=== PATIENT | female | born 1990 | race Caucasian/White ===

== ENCOUNTER → 2018-06-28 | Outpatient (CLI) | payer OTHER ==
--- NOTE | 2018-06-28 09:14 | KCIC ---
MRI Lumbar Spine without contrast History: Lumbago, right sciatica, right leg numbness and pain since December worse the last few months Technique: Multiplanar, multi sequential noncontrast MR imaging was performed of the lumbar spine. Comparison: None Findings: Lumbar vertebral body stature and AP alignment are preserved. Conus terminates at T12-L1. There is no significant marrow edema. There are posterior annular tears L3-4 to L5-S1. There is moderate degenerative disc disease L4-5 and L5-S1, minimally L3-4. There is a focus of nonspecific edema of the posterior subcutaneous fat centered at L1-L2, consideration of underlying soft tissue hemangioma given the more focal appearance. L2-L3: Spinal canal and neural foramina are adequate. L3-L4: There is posterior central protrusion with mild indentation upon the ventral thecal sac. There is mild buckling of the ligamentum flavum. There is very mild narrowing of the far left lateral recess. Neural foramina are adequate. L4-L5: There is more focal protrusion/contained extrusion centrally and more eccentric to the right lateral recess on the order of 1 cm AP by 1 cm CC by 1 cm transverse, indentation upon the ventral thecal sac greater in the right lateral recess. There is fairly severe right lateral recess stenosis, contact of the descending right L5 nerve root. There is also moderate narrowing of the central canal, very mild narrowing of the far left lateral recess. Neural foramina are adequate. L5-S1: There is shallow protrusion eccentric to left lateral recess, near the descending left S1 nerve root without significant impingement or spinal stenosis. Neural foramina are adequate. Impression: 1. There is more focal protrusion/contained extrusion more eccentric to the right lateral recess at L4-5 with severe right lateral recess stenosis and contact of the descending right L5 nerve root. There are also shallow protrusions at L3-4 and L5-S1 as described without significant neural impingement. 2. There is moderate degenerative disc disease at L4-5 and L5-S1, minimally at L3-4. There are posterior annular tears at these levels. Electronically signed by: Solitario Higgins MD (06/28/2018 9:10 AM) [id number]
== END | disposition home or self-care (01) ==
LOC: KCIC MRI 07:36
PROVIDERS: ATTEND Family Medicine
DX: M51.36 Other intervertebral disc degeneration, lumbar region (principal); M51.37 Other intervertebral disc degeneration, lumbosacral region; M48.061 Spinal stenosis, lumbar region without neurogenic claudication
CPT/HCPCS: 72148